=== PATIENT | female | born 1960 | race Caucasian/White ===

== ENCOUNTER → 2017-02-09 | Outpatient (CLI) | payer BC ==
[2016-01-12 18:55] VITALS: BP 154/98
[~2017-02-09] MED LIST: ACET325T21 PO; ALPR0.5T10 PO; AMLO10TA2 PO; CARV6.252 PO; IPRA15SP2 NS; LISI40TA PO; OXYC-323 PO; OXYM15SP NS; PRAV20TA2 PO; RIVA10TA PO; TOPI100T42 PO; VANC1PLA2 IV
[2017-02-09 18:02] LABS: CALCIUM 9.1 mg/dL (8.5-10.1); GFR 39.2; POTASSIUM 3.5 mmol/L (3.5-5.1)
[2017-02-09 18:07] LABS: CREATININE 1.4 mg/dL (0.6-1.0)
== END | disposition home or self-care (01) ==
LOC: LAB 17:15
PROVIDERS: ATTEND Internal Medicine Cardiovascular Disease
DX: I10 Essential (primary) hypertension (principal)
CPT/HCPCS: 36415; 80048

== ENCOUNTER 2020-06-19 17:55 | Emergency (ER) | payer BC, OTHER ==
[~2020-06-19] VITALS: Ht 157.5 cm; Wt 73.7 kg
[~2020-06-19 17:55] MED LIST changes: +AMLO-187 PO; -AMLO10TA2 PO; -CARV6.252 PO; +CARV6.2541 PO; -OXYC-323 PO; +OXYC1TAB15 PO
--- NOTE | 2020-06-19 18:11 | EKG ---
[address] [address] Test Date: 2020-06-19 Test Time: 18:04:13 Pat Name: BRYSON HANSON Department: Room: Gender: F [place] Cook: MELVIN : 1960 Requested By: ZAC ORNELAS Order Number: [id number] Reading MD: Measurements Intervals [place] Rate: 76 P: 59 TN: 128 QRS: -32 QRSD: 150 T: 125 QT: 424 QTc: 482 Interpretive Statements SINUS RHYTHM LEFT ATRIAL ABNORMALITY CONSIDER WPW, TYPE B ABNORMAL LEFT AXIS DEVIATION QRS(T) CONTOUR ABNORMALITY CONSIDER ANTEROSEPTAL MYOCARDIAL DAMAGE ST ABNORMALITY, POSSIBLE HIGH LATERAL SUBENDOCARDIAL INJURY ABNORMAL ECG RI6.02 No previous ECG available for comparison
--- NOTE | 2020-06-19 18:21 | RAD ---
CT scan of the head without contrast 06/19/2020 Clinical History: Left-sided numbness and weakness. Code stroke. Technique: Unenhanced, contiguous, 5 mm axial sections were obtained through the head. One or more of the following individualized dose reduction techniques were utilized for this study: 1. Automated exposure control. 2. Adjustment of the mA and/or kV according to patient size. 3. Use of iterative reconstruction technique. Findings: An acute hematoma is seen involving the right basal ganglia region extending superiorly. This measures 3.5 x 3.2 x 2.7 cm in cranial caudal, AP and transverse dimensions. There is mild surrounding edema and associated mass effect. Effacement of the right lateral ventricle is seen. No significant midline shift is seen at this time. No extra-axial fluid collection is noted. No skull fracture is seen. IMPRESSION: 3.5 cm acute parenchymal hematoma is seen involving the right basal ganglia region. There is surrounding edema and associated mass effect as discussed above. These findings were discussed with the emergency department. FOR INTERNAL CODING PURPOSES RESULT CODE: (C) Electronically signed by: Pradip Miller MD (06/19/2020 6:18 PM) [id number]
--- NOTE | 2020-06-19 18:26 | PHYS DOC ---
Past History Past Medical History: A-Fib, Asthma, High Cholesterol, Hypertension, Other Past Surgical History: No Surgical History Alcohol Use: Occasionally Drug Use: None Adult General Chief Complaint Chief Complaint: NEURO SYMPTOMS/DEFICITS HPI HPI Patient is a 60-year-old female who presents via EMS for stroke. Patient symptoms started at 5:30 PM. Patient was at work, was in bathroom and after being in there longer than 5 minutes a coworker went to check on her. Patient was found on commode, she had noticeable facial droop, left upper and and lower extremity motor weakness and because of this was unable to get up and ambulate out of the bathroom, there was no trauma or fall. Patient remembers entire event without loss of consciousness, no known inciting event and/or trauma. Coworkers immediately called EMS due to concern for stroke and patient was subsequently delivered to our facility for evaluation within 10 minutes of onset. Patient immediately seen by myself and other healthcare providers on arrival to our ER. Code stroke was initiated. NIH stroke scale was calculated at 18. CT head without contrast imaging performed and was concerning for hemorrhagic stroke, this was later confirmed by radiologist as 3.5 cm acute parenchymal hematoma involving the right basal ganglia region. There is surrounding edema and associated mass effect. Besides gross motor and sensory deficits, patient is AAO x3, protecting airway, and denies being in any pain. Patient admits history of hypertension without any changes in medication, reports 100% compliance, she is not on any anticoagulants. Unsure of what blood pressure readings have been recently, denies history of any drug use or any COVID-19 contact Review of Systems Review of Systems Fourteen body systems of review of systems have been reviewed. See HPI for pertinent positives and negative responses, other watt all other systems are negative, non-pertinent or non-contributory Current Medications Current Medications Current Medications Medications (Trade) Dose Ordered Sig/Juliet Start Time Stop Time Status Last Admin Dose Admin Nicardipine HCl 50 mg/Sodium Chloride 270 ml @ 27 mls/hr CONT PRN 06/19/20 18:30 UNV Allergies Allergies Allergies Coded Allergies Type Severity Reaction Last Updated Verified Penicillins Allergy Severe throat swelling 06/19/20 No acetaminophen Allergy Severe Anaphylaxis 06/19/20 Yes hydrocodone Allergy Severe Anaphylaxis, tolerates MORPHINE 06/19/20 Yes Physical Exam Physical Exam Constitutional: Pt is oriented to person, place, and time. Pt appears well- developed and well-nourished with gross motor deficits to left lower face, left upper and lower extremities HENT: Head: Normocephalic and atraumatic. Mouth/Throat: Oropharynx is clear and moist. No hematomas or lacerations or abrasions to face or scalp OP clear, no blood, no malocclusion, dentition intact Nares clear, no nasal septal hematoma Bilateral external ears unremarkable Midface stable Eyes: Conjunctivae and EOM are normal. Pupils are equal, round, and reactive to light. Neck: C-spine midline nontender, no step-offs Cardiovascular: Normal rate, regular rhythm and normal heart sounds. Pulmonary/Chest: Effort normal and breath sounds normal. No respiratory distress. No wheezes. CTA bilaterally Abdominal: Soft. Bowel sounds are normal. Pt exhibits no distension. There is no tenderness. Musculoskeletal: No bony tenderness to extremities, no palpable or observable bony deformities, 3/5 muscle strength of left upper and lower extremities Chest wall stable Pelvis stable and non-tender No vertebral TTP and spine without stepoffs Neurological: Pt is alert and oriented to person, place, and time. Moving all extremities willfully but obvious motor deficits noted to left lower face, left upper and lower extremities as discussed above, unable to complete left heel to right flores or left [id number] Alert and oriented x 3 Sensation decreased on left lower face in addition to left upper and lower extremities versus contralateral side, unable to accurately differentiate between dull and sharp pain Skin: Skin is warm and dry. No abrasions, no lacerations Psychiatric: Behavior is appropriate for situation Nursing note and vitals reviewed. Current Patient Data Vital Signs Vital Signs Date Time Temp Pulse Resp B/P (MAP) Pulse Ox O2 Delivery O2 Flow Rate FiO2 06/19/20 18:30 73 23 157/115 (129) 99 06/19/20 17:55 98.3 Room Air Lab Results Laboratory Tests Test 06/19/20 18:10 White Blood Count 10.4 x10^3/uL (4.0-11.0) Red Blood Count 4.31 x10^6/uL (3.50-5.40) Hemoglobin 13.2 g/dL (12.0-15.5) Hematocrit 40.3 % (36.0-47.0) Mean Corpuscular Volume 94 fL (79-100) Mean Corpuscular Hemoglobin 31 pg (25-35) Mean Corpuscular Hemoglobin Concent 33 g/dL (31-37) Red Cell Distribution Width 13.7 % (11.5-14.5) Platelet Count 230 x10^3/uL (140-400) Neutrophils (%) (Auto) 41 % (31-73) Lymphocytes (%) (Auto) 49 % (24-48) Monocytes (%) (Auto) 7 % (0-9) Eosinophils (%) (Auto) 2 % (0-3) Basophils (%) (Auto) 1 % (0-3) Neutrophils # (Auto) 4.3 x10^3uL (1.8-7.7) Lymphocytes # (Auto) 5.1 x10^3/uL (1.0-4.8) Monocytes # (Auto) 0.7 x10^3/uL (0.0-1.1) Eosinophils # (Auto) 0.2 x10^3/uL (0.0-0.7) Basophils # (Auto) 0.1 x10^3/uL (0.0-0.2) Prothrombin Time 10.0 SEC (9.4-11.4) Prothromb Time International Ratio 1.0 (0.9-1.1) Activated Partial Thromboplast Time 24 SEC (23-33) Sodium Level 141 mmol/L (136-145) Potassium Level 3.3 mmol/L (3.5-5.1) Chloride Level 104 mmol/L (98-107) Carbon Dioxide Level 28 mmol/L (21-32) Anion Gap 9 (6-14) Blood Urea Nitrogen 16 mg/dL (7-20) Creatinine 1.1 mg/dL (0.6-1.0) Estimated GFR (Cockcroft-Gault) 51.0 BUN/Creatinine Ratio 15 (6-20) Glucose Level 104 mg/dL (70-99) Calcium Level 10.1 mg/dL (8.5-10.1) EKG EKG EKG ordered and interpreted by myself at 1811 hrs. as sinus rhythm at 76 bpm, unremarkable intervals besides prolonged QTC at 482, left axis deviation, nonspecific intraventricular conduction delay that does not meet criteria for left bundle branch block, concern for ST elevation in leads V1 through V3 but no reciprocal changes therefore no STEMI Radiology/Procedures Radiology/Procedures PROCEDURE: CT CODE STROKE HEAD WO CT scan of the head without contrast 06/19/2020 Clinical History: Left-sided numbness and weakness. Code stroke. Technique: Unenhanced, contiguous, 5 mm axial sections were obtained through the head. One or more of the following individualized dose reduction techniques were utilized for this study: 1. Automated exposure control. 2. Adjustment of the mA and/or kV according to patient size. 3. Use of iterative reconstruction technique. Findings: An acute hematoma is seen involving the right basal ganglia region extending superiorly. This measures 3.5 x 3.2 x 2.7 cm in cranial caudal, AP and transverse dimensions. There is mild surrounding edema and associated mass effect. Effacement of the right lateral ventricle is seen. No significant midline shift is seen at this time. No extra-axial fluid collection is noted. No skull fracture is seen. IMPRESSION: 3.5 cm acute parenchymal hematoma is seen involving the right basal ganglia region. There is surrounding edema and associated mass effect as discussed above. These findings were discussed with the emergency department. FOR INTERNAL CODING PURPOSES RESULT CODE: (C) Electronically signed by: Pradip Miller MD (06/19/2020 6:18 PM) [id number] Heart Score HEART Score for Chest Pain: HEART Score for Chest Pain Response (Comments) Value History Slighlty/Non-Suspicious 0 ECG Nonspecific Repolarizatio 1 Age >45 - < 65 1 Risk Factors 1 or 2 Risk Factors 1 Troponin < Normal Limit 0 Total 3 Risk Factors: Risk Factors: DM, Current or recent (<one month) smoker, HTN, HLP, family history of CAD, obesity. Risk Scores: Risk Factors: DM, Current or recent (<one month) smoker, HTN, HLP, family history of CAD, obesity. Course & Med Decision Making Course & Med Decision Making Patient seen on immediate ER arrival, code stroke initiated Airway patent, breathing unlabored, vital signs grossly unremarkable, fingerstick blood glucose greater than 80 Comprehensive history and physical examination performed after initial CT head and an NIH stroke scale that was 18 were completed, I discussed with patient most likely diagnosis of hemorrhagic stroke [facility] stroke center was called and case was discussed, they agreed the need for transportation to their facility for higher acuity of care Given that patient is awake alert oriented x3, protecting airway, is not hyper/hypoglycemic, not taking anticoagulants and blood pressure is neither hyper nor hypotensive, minimal intervention required at this time I discussed need for transfer to [facility] with patient and she was amenable. Patient was accepted under care of Dr. Iraj Ahuja. I called patient's PCP, he confirmed history of hypertension. He too agreed for need to transfer patient to higher acuity of care at [facility] I discussed this with patient and patient's and they were both amenable. All questions and concerns addressed prior to ER transportation to [facility] via EMS for continued medical and potential surgical intervention for her hemorrhagic stroke Dragon Disclaimer Dragon Disclaimer This electronic medical record was generated, in whole or in part, using a voice recognition dictation system. NIH Stroke Scale: NIH Stroke Scale Response (Comments) Value Level of Consciousness: 0 Alert/Responsive 0 LOC Questions: 0 Answers both correctly 0 LOC Commands: 0 Performs both tasks 0 Best Gaze: 2 Forced deviation 2 Visual: 2 Complete hemianopia 2 Facial Palsy: 3 Complete paralysis 3 Motor - Left Arm 3 Limb falls 3 Motor - Right Arm 0 No drift 0 Motor - Left Leg 3 Limb falls 3 Motor: Right Leg 0 No drift 0 Limb Ataxia: 2 Two limbs 2 Sensory: 1 Mid to moderate loss 1 Best Language: 1 Mild to mod aphasia 1 Dysathria: 1 Mild to moderate 1 Total 18 Departure Departure: Impression: Primary Impression: Stroke of right basal ganglia Additional Impressions: Stroke, hemorrhagic HTN (hypertension) Hyperlipidemia Disposition: 02 DC/TRF OTHER SHORT TERM HOS ([facility] for higher acuity of care for hemorrhagic stroke) Admitting Physician: Other (Dr. Iraj Ahuja) Condition: STABLE Referrals: DARRON LOW MD (PCP) Problem Qualifiers ZAC ORNELAS DO Jun 19, 2020 18:26
[2020-06-19 18:33] LABS: BASO # 0.1 x10^3/uL (0.0-0.2); BASO % 1 % (0-3); EOS # 0.2 x10^3/uL (0.0-0.7); EOS % 2 % (0-3); HEMATOCRIT 40.3 % (36.0-47.0); HEMOGLOBIN 13.2 g/dL (12.0-15.5); LYMPH # 5.1 x10^3/uL (1.0-4.8); LYMPH % 49 % (24-48); MEAN CORPUSCULAR HEMOGLOBIN 31 pg (25-35); MEAN CORPUSCULAR HGB CONC 33 g/dL (31-37); MEAN CORPUSCULAR VOLUME 94 fL (79-100); MONO # 0.7 x10^3/uL (0.0-1.1); MONO % 7 % (0-9); NEUT # 4.3 x10^3uL (1.8-7.7); NEUT % 41 % (31-73); PLATELET COUNT 230 x10^3/uL (140-400); RED BLOOD COUNT 4.31 x10^6/uL (3.50-5.40); RED CELL DISTRIBUTION WIDTH 13.7 % (11.5-14.5); WHITE BLOOD COUNT 10.4 x10^3/uL (4.0-11.0)
[2020-06-19 18:46] LABS: CALCIUM 10.1 mg/dL (8.5-10.1); CREATININE 1.1 mg/dL (0.6-1.0); POTASSIUM 3.3 mmol/L (3.5-5.1)
[2020-06-19 18:52] LABS: ALBUMIN 4.2 g/dL (3.4-5.0); ALBUMIN/GLOBULIN RATIO 1.3 (1.0-1.7); TOTAL BILIRUBIN 0.4 mg/dL (0.2-1.0); TOTAL PROTEIN 7.4 g/dL (6.4-8.2)
[2020-06-19] MEDS ORDERED: ONDANSETRON PF 4 MG/2 ML VIAL. ONE (19:07)
[2020-06-19] MEDS ORDERED: SUCCINYLCHOLINE 200 MG/10 ML VIAL. ONE ×2 (19:09→19:15)
[2020-06-19] MEDS ORDERED: PROPOFOL 100 ML IV ONE (19:15)
[2020-06-19] MEDS ORDERED: SUCCINYLCHOLINE 200 MG/10 ML VIAL. IV ONE (19:45)
[2020-06-19] MEDS ORDERED: ETOMIDATE 40 MG/20 ML VIAL. INJ ONE (19:45)
[2020-06-19 20:03] VITALS: BP 145/81
--- NOTE | 2020-06-19 21:04 | RAD ---
Exam: Chest one INDICATION: Post intubation TECHNIQUE: Frontal view of the chest Comparisons: None FINDINGS: Endotracheal tube with tip in the proximal right mainstem bronchus. The cardiomediastinal silhouette and pulmonary vessels are within normal limits. The lung and pleural spaces are clear. IMPRESSION: Endotracheal tube with tip in the right mainstem bronchus, recommend repositioning. FOR INTERNAL CODING PURPOSES Critical result: Findings discussed with ZAC ORNELAS at 06/19/2020 9:00 PM. RESULT CODE: (C) Electronically signed by: Naila Napoles MD (06/19/2020 9:01 PM) MEHRAN
[2020-06-19 22:34] LABS: BGAS PH 7.44 (7.35-7.45)
== END 2020-06-19 20:24 | disposition short-term general hospital (02) ==
LOC: ER 17:55
DX: I63.89 Other cerebral infarction (principal); I10 Essential (primary) hypertension; E78.5 Hyperlipidemia, unspecified; R53.1 Weakness; R29.810 Facial weakness; I48.20 Chronic atrial fibrillation, unspecified; J45.909 Unspecified asthma, uncomplicated; E78.00 Pure hypercholesterolemia, unspecified; Z88.5 Allergy status to narcotic agent; Z88.8 Allergy status to other drugs, medicaments and biological substances
CPT/HCPCS: 31500; 36415; 51702; 70450; 71045; 80053; 82803; 82947; 84484; 85025; 85610; 85730; 93005; 99291; J0330

== ENCOUNTER 2020-08-06 04:53 | Emergency (ER) | payer SELFPAY ==
[~2020-08-06] VITALS: Ht 157.5 cm; Wt 73.7 kg
--- NOTE | 2020-08-06 06:11 | PHYS DOC ---
Past History Past Medical History: A-Fib, Asthma, High Cholesterol, Hypertension, Other (JOSÉ MANUEL WHITTAKER DO) Past Surgical History: Tubal ligation (JOSÉ MANUEL WHITTAKER DO) Alcohol Use: None Drug Use: None (JOSÉ MANUEL WHITTAKER DO) General Adult EDM: Chief Complaint: OTHER COMPLAINTS HPI: HPI: History obtained from patient and EMS. Patient is a 60-year-old female who presents with chief complaint of tracheostomy dislodgment. Per EMS the patient had the tracheostomy placed in May at [facility] for stroke. P speaking is difficult for the patient secondary to her stroke but she relates that the area was itching. She self remove it approximately 4 hours ago. Notes very minimal bleeding around the site. States she has not trach dependent for oxygenation. Denies fevers. Denies history of dislodgment. No other complaints. (JOSÉ MANUEL WHITTAKER DO) Review of Systems: Review of Systems: Constitutional: Denies fever or chills Eyes: Denies change in visual acuity HENT: Denies nasal congestion or sore throat Respiratory: Denies cough or shortness of breath Cardiovascular: Denies chest pain or edema GI: Denies abdominal pain, nausea, vomiting, bloody stools or diarrhea : Denies dysuria Musculoskeletal: Denies back pain or joint pain Integument: Denies rash Neurologic: Denies headache, focal weakness or sensory changes Endocrine: Denies polyuria or polydipsia Lymphatic: Denies swollen glands Psychiatric: Denies depression or anxiety (JOSÉ MANUEL WHITTAKER DO) Allergies: Allergies: Allergies Coded Allergies Type Severity Reaction Last Updated Verified Penicillins Allergy Severe throat swelling 06/19/20 No acetaminophen Allergy Severe Anaphylaxis 06/19/20 Yes hydrocodone Allergy Severe Anaphylaxis, tolerates MORPHINE 06/19/20 Yes (JOSÉ MANUEL WHITTAKER DO) Physical Exam: PE: Constitutional: Well developed, well nourished, no acute distress, non-toxic appearance. [] HENT: Normocephalic, atraumatic, bilateral external ears normal, oropharynx moist, no oral exudates, nose normal. [] Eyes: PERRLA, EOMI, conjunctiva normal, no discharge. [] Neck: Normal range of motion, no tenderness, supple, no stridor. Stoma and fistula visualized overlying the trachea. Well-healed granulation tissue visualized. No purulent drainage noted. Minimal bleeding noted. [] Cardiovascular:Heart rate regular rhythm, no murmur [] Lungs & Thorax: Bilateral breath sounds clear to auscultation [] Abdomen: , soft, no tenderness, no masses, no pulsatile masses. [] Skin: Warm, dry, no erythema, no rash. [] Back: No tenderness, no CVA tenderness. [] Extremities: No tenderness, no cyanosis, no clubbing, ROM intact, no edema. [] Neurologic: Alert and oriented X 3, normal motor function, normal sensory function, no focal deficits noted. [] Psychologic: Affect normal, judgement normal, mood normal. [] (JOSÉ MANUEL WHITTAKER DO) PE: Constitutional: Well developed, well nourished, no acute distress HENT: Normocephalic, right temporal healed scar Eyes: Conjunctiva normal, no discharge Neck: Normal range of motion, supple, stoma with scant blood noted Lungs & Thorax: No respiratory distress, equal chest rise and fall Abdomen: Soft and nontender Skin: Warm, dry, no erythema, no rash Extremities: No tenderness, ROM intact, no edema Neurologic: Alert, left arm rigidity/contraction noted (AURE THAKUR DO) EKG: EKG: [] (JOSÉ MANUEL WHITTAKER DO) Radiology/Procedures: Radiology/Procedures: [] (JOSÉ MANUEL WHITTAKER DO) Heart Score: Risk Factors: Risk Factors: DM, Current or recent (<one month) smoker, HTN, HLP, family history of CAD, obesity. Risk Scores: Score 0 - 3: 2.5% MACE over next 6 weeks - Discharge Home Score 4 - 6: 20.3% MACE over next 6 weeks - Admit for Clinical Observation Score 7 - 10: 72.7% MACE over next 6 weeks - Early Invasive Strategies (JOSÉ MANUEL WHITTAKER DO) Course & Med Decision Making: Course & Med Decision Making Pertinent Labs and Imaging studies reviewed. (See chart for details) [] Patient is a 60-year-old female who arrives via EMS for tracheostomy dislodgment. She did have this tracheostomy placed May 2020 for stroke related complications. She estimates she self remove the trach several hours ago. I I did discuss the case with [facility] answer Center to ensure maturation of the fistula as well as appropriate equipment. Patient has a noncuffed 6-0 trach. Given our limited equipment at our facility 6-0 cuffed Shiley tracheostomy tube replacement was attempted. This was unsuccessful. Additional 4-0 cuffed Shiley tracheostomy tube replacement attempt at bedside as well. This was unsuccessful. I was concerned regarding the amount of force required to pass the tracheostomy site. Furthermore granulation tissue is beginning to bleed over the area and the patient was significantly uncomfortable. Given the previous tracheostomy has been removed for several hours closure of the tract may have already begun to occur. I do feel the patient will require transfer to [facility] for further tracheostomy evaluation. I have signed out the patient's emergency department care to Dr. Thakur. We discussed the history, physical exam findings, completed and pending laboratory results and imaging studies. We have also discussed the current treatment plan and expected clinical course. Please refer to chart for the patient's remaining emergency department course, final disposition, and clinical impression(s). (JOSÉ MANUEL WHITTAKER DO) Course & Med Decision Making 0600- Sign out received from Dr. Whittaker for patient with accidental trach removal that was placed at in May. Dr. Whittaker trialled replacement with 2 different sizes without success. transfer line called by Dr. Whittaker after failed attempts. Patient seen and evaluated by myself. transfer center called back with recommendation for patient to follow-up in ENT clinic today at [address] Davon Rodriguez (ENT. Patient stable for discharge with outpatient follow-up with ENT clinic. Discussed findings and plan with patient, who acknowledges understanding and agreement. (AURE THAKUR DO) Lianeon Disclaimer: Marylou Disclaimer: This electronic medical record was generated, in whole or in part, using a voice recognition dictation system. (JOSÉ MANUEL WHITTAKER DO) Departure Departure: Impression: Primary Impression: Tracheostomy complication Qualified Codes: J95.00 - Unspecified tracheostomy complication Disposition: 01 DC HOME SELF CARE/HOMELESS Condition: STABLE Referrals: DARRON LOW MD (PCP) Patient Instructions: Care of a Tracheostomy Tube, [id number] Additional Instructions: Please follow up at ENT clinic at 0930. You have an appointment made for you to further evaluate replacement of your tracheostomy tube. Call ENT clinic at with any concerns. JOSÉ MANUEL WHITTAKER DO Aug 06, 2020 06:11 AURE THAKUR DO Aug 06, 2020 07:16
[2020-08-06 08:15] VITALS: BP 136/66
== END 2020-08-06 08:47 | disposition home or self-care (01) ==
LOC: ER 04:53
DX: J95.09 Other tracheostomy complication (principal); I48.91 Unspecified atrial fibrillation; J45.909 Unspecified asthma, uncomplicated; E78.00 Pure hypercholesterolemia, unspecified; I10 Essential (primary) hypertension; Z88.0 Allergy status to penicillin; Z88.6 Allergy status to analgesic agent; Z88.5 Allergy status to narcotic agent
CPT/HCPCS: 96372; 99283; J3010